=== PATIENT | female | born 1945 | race Caucasian/White ===

== ENCOUNTER 2021-09-17 12:06 | Inpatient (IN) ==
[2021-09-17] MEDS ORDERED: SODIUM CHLORIDE 0.9% 1,000 ML IV STA (13:34)
[2021-09-17 14:12] LABS: Basophils % 0.3 % (0.0-0.8); Eosinophils % 0.2 % (0.00-10.9); Hematocrit 44.7 VOL% (35.7-47.0); Hemoglobin 14.9 GM/DL (12.0-16.0); Immature Granulocytes % 0.4 %; Immature Granulocytes Absolute 0.04 #; Lymphocytes # 2.3 10*3/uL (1.4-4.0); Lymphocytes % 26.1 % (21.3-54.2); Mean Corpuscular HGB Conc 33.3 GM/DL (32-36); Mean Corpuscular Volume 93.7 FL (87-102); Monocytes % 10.8 % (1.7-12.7); Neutrophils % 62.2 % (38.7-73.9); Platelet Count 150 T/CUMM (130-400); Red Blood Count 4.77 MC/CUMM (3.8-5.5); Red Cell Distribution Width 13.9 % (9.3-17.3); White Blood Count 8.9 T/CUMM (4-12)
[2021-09-17] MEDS ORDERED: levETIRAcetam 500 MG/5 ML VIAL IV ONE (14:14)
[2021-09-17 14:24] LABS: PT Patient Result 11.1 SECS (10.5-12.0)
[2021-09-17 15:18] LABS: Albumin 3.7 G/DL (3.4-5.0); Bilirubin,Total 2.2 MG/DL (0.20-1.00); Calcium 9.6 MG/DL (8.5-10.1); Potassium 4.2 MMOL/L (3.5-5.1); Total Protein 6.8 G/DL (6.4-8.2)
[2021-09-17] MEDS ORDERED: hydrALAZINE 20 MG/1 ML VIAL IV STA (15:26)
[2021-09-17] MEDS ORDERED: ONDANSETRON 4 MG/2 ML VIAL IV STA (16:22)
[2021-09-17] MEDS ORDERED: amLODIPine 5 MG TABLET PO STA (16:25)
[2021-09-17 16:37] LABS: Bilirubin,Urine Negative (Negative); Blood, Urine Small mg/dL (Negative); Glucose,Urine (UA) Negative (Negative); Hyaline Casts,Urine 1 /LPF (0-3); Ketones,Urine Negative (Negative); Mucus,Urine Occasional /LPF (Occasional); Nitrite,Urine Negative (Negative); Protein,Urine 100 MG/DL; RBC,Urine <1 /HPF (0-4); Squamous Epithelial Cell,Urine Occasional /HPF (0-10); Urine Appearance CLEAR (Clear); Urine Color Yellow (Yellow); Urine Specific Gravity 1.009 (1.001-1.035); Urine Urobilinogen < 2.0 EU/DL (0.2-1.0)
[2021-09-17] MEDS ORDERED: GLUCAGON 1 MG VIAL IM PRN (16:39)
[2021-09-17] MEDS ORDERED: DEXTROSE 50% 25 GM/50 ML SYRINGE IV PRN (16:39)
[2021-09-17] MEDS ORDERED: BISACODYL 5 MG TABLET PO PRN (16:40)
[2021-09-17] MEDS ORDERED: ACETAMINOPHEN 325 MG TABLET PO PRN (16:40)
[2021-09-17] MEDS ORDERED: ONDANSETRON 4 MG/2 ML VIAL IV PRN (16:40)
[2021-09-17] MEDS ORDERED: LORazepam 2 MG/1 ML VIAL IV PRN (16:41)
[2021-09-17] MEDS: LOSARTAN 25 MG TABLET PO SCH (18:00)
[2021-09-17] MEDS: SODIUM CHLORIDE 0.9% 1,000 ML IV SCH (18:00)
[2021-09-17] MEDS: ENOXAPARIN 40 MG/0.4 ML SYRINGE SUBCUT SCH (18:00)
[2021-09-17 18:22] LABS: Barbiturates Screen,Urine Negative (Negative); Benzodiazepines Screen,Urine Negative (Negative); Cannabinoid Screen,Urine Negative (Negative); Opiate Screen,Urine Negative (Negative); Phencyclidine Screen,Urine Negative (Negative)
[2021-09-17] MEDS ORDERED: METOPROLOL TARTRATE 50 MG TABLET PO SCH (21:00)
[2021-09-17] MEDS: INSULIN LISPRO 100 UNIT/ML SUBCUT SCH (21:40)
[2021-09-18 02:39] LABS: Calcium 8.6 MG/DL (8.5-10.1); Osmolality,Calculated 287.5 MOS/KG (273-304); Potassium 3.6 MMOL/L (3.5-5.1)
[2021-09-18] MEDS: SODIUM CHLORIDE 0.9% 1,000 ML IV SCH ×4 (05:28→23:01)
[2021-09-18 06:31] LABS: Basophils # 0.1 10*3/uL (0.0-0.2); Basophils % 0.7 % (0.0-0.8); Eosinophils % 0.1 % (0.00-10.9); Hematocrit 39.6 VOL% (35.7-47.0); Immature Granulocytes % 0.3 %; Immature Granulocytes Absolute 0.02 #; Lymphocytes # 2.3 10*3/uL (1.4-4.0); Lymphocytes % 30.5 % (21.3-54.2); Mean Corpuscular HGB Conc 32.8 GM/DL (32-36); Mean Corpuscular Volume 96.6 FL (87-102); Mean Platelet Volume 12.8 FL (9.6-12.0); Monocytes % 12.4 % (1.7-12.7); Platelet Count 131 T/CUMM (130-400); Red Cell Distribution Width 14.3 % (9.3-17.3); White Blood Count 7.6 T/CUMM (4-12)
[2021-09-18 07:02] LABS: Albumin 2.8 G/DL (3.4-5.0); Bilirubin,Total 1.6 MG/DL (0.20-1.00); Calcium 8.2 MG/DL (8.5-10.1); Osmolality,Calculated 290.1 MOS/KG (273-304); Potassium 3.8 MMOL/L (3.5-5.1); Risk Ratio 4.18; Thyroid Stimulating Hormone 0.325 uIU/ml (0.358-3.74); Total Protein 5.7 G/DL (6.4-8.2); VLDL Cholesterol 31.2 MG/DL
[2021-09-18] MEDS: INSULIN LISPRO 100 UNIT/ML SUBCUT SCH ×4 (07:37→21:33)
[2021-09-18] MEDS: LOSARTAN 25 MG TABLET PO SCH (08:13)
[2021-09-18 08:52] LABS: Free T4 (Free Thyroxine) 1.44 NG/DL (0.76-1.46)
[2021-09-18] MEDS ORDERED: LOSARTAN 25 MG TABLET PO ONE (12:15)
[2021-09-18] MEDS: hydrALAZINE 20 MG/1 ML VIAL IV PRN (15:26)
[2021-09-18] MEDS: ENOXAPARIN 40 MG/0.4 ML SYRINGE SUBCUT SCH (16:42)
[2021-09-19] MEDS: SODIUM CHLORIDE 0.9% 1,000 ML IV SCH ×3 (03:50→20:08)
[2021-09-19 06:24] LABS: Bilirubin,Total 1.4 MG/DL (0.20-1.00); Calcium 8.4 MG/DL (8.5-10.1); Osmolality,Calculated 289.3 MOS/KG (273-304); Potassium 3.9 MMOL/L (3.5-5.1); Total Protein 6.2 G/DL (6.4-8.2)
[2021-09-19] MEDS: INSULIN LISPRO 100 UNIT/ML SUBCUT SCH ×4 (08:16→20:09)
[2021-09-19] MEDS: LOSARTAN 50 MG TABLET PO SCH (08:16)
[2021-09-19] MEDS ORDERED: DIAZEPAM 5 MG TABLET PO ONE (14:37)
[2021-09-19] MEDS ORDERED: MAGNESIUM SULF RIDER 2 GM/50 ML PREMIX IV PRN (14:37)
[2021-09-19] MEDS ORDERED: POTASSIUM CHLORIDE RIDER 10 MEQ/100 ML PREMIX IV PRN (14:37)
[2021-09-19] MEDS ORDERED: diphenhydrAMINE CAP 25 MG CAPSULE PO ONE (14:37)
[2021-09-19] MEDS ORDERED: LIDOCAINE 1% 20 ML VIAL ONE (15:05)
[2021-09-19] MEDS ORDERED: fentaNYL 100 MCG/2 ML VIAL ONE (15:20)
[2021-09-19] MEDS ORDERED: MIDAZOLAM 2 MG/2 ML VIAL ONE (15:20)
[2021-09-19 17:12] LABS: Bacteria,Urine Many /HPF (Few); Bilirubin,Urine Negative (Negative); Blood, Urine Negative (Negative); Glucose,Urine (UA) 50 mg/dL (Negative); Ketones,Urine Negative (Negative); Mucus,Urine Occasional /LPF (Occasional); Nitrite,Urine Negative (Negative); Protein,Urine 100 MG/DL; RBC,Urine 2 /HPF (0-4); Squamous Epithelial Cell,Urine Occasional /HPF (0-10); Urine Appearance CLEAR (Clear); Urine Color Yellow (Yellow); Urine Specific Gravity 1.011 (1.001-1.035)
[2021-09-19] MEDS: ENOXAPARIN 40 MG/0.4 ML SYRINGE SUBCUT SCH (17:55)
[2021-09-20] MEDS: hydrALAZINE 20 MG/1 ML VIAL IV PRN (00:04)
[2021-09-20] MEDS: SODIUM CHLORIDE 0.9% 1,000 ML IV SCH ×4 (01:49→23:05)
[2021-09-20 06:02] LABS: Basophils % 0.5 % (0.0-0.8); Eosinophils # 0.2 10*3/uL (0.0-0.87); Eosinophils % 2.3 % (0.00-10.9); Hematocrit 39.9 VOL% (35.7-47.0); Immature Granulocytes % 0.2 %; Immature Granulocytes Absolute 0.02 #; Lymphocytes # 1.8 10*3/uL (1.4-4.0); Lymphocytes % 21.5 % (21.3-54.2); Mean Corpuscular HGB Conc 32.6 GM/DL (32-36); Mean Corpuscular Volume 97.1 FL (87-102); Mean Platelet Volume 12.5 FL (9.6-12.0); Monocytes % 11.4 % (1.7-12.7); Neutrophils % 64.1 % (38.7-73.9); Platelet Count 121 T/CUMM (130-400); Red Blood Count 4.11 MC/CUMM (3.8-5.5); Red Cell Distribution Width 14.4 % (9.3-17.3); White Blood Count 8.2 T/CUMM (4-12)
[2021-09-20 06:42] LABS: Albumin 2.7 G/DL (3.4-5.0); Bilirubin,Direct 0.37 MG/DL (0.0-0.20); Bilirubin,Indirect 1.4 MG/DL (0.0-1.0); Bilirubin,Total 1.8 MG/DL (0.20-1.00); Calcium 8.6 MG/DL (8.5-10.1); Osmolality,Calculated 284.4 MOS/KG (273-304); Potassium 3.8 MMOL/L (3.5-5.1); Total Protein 5.5 G/DL (6.4-8.2)
[2021-09-20] MEDS: SIMVASTATIN 40 MG TABLET PO SCH (09:53)
[2021-09-20] MEDS: LOSARTAN 50 MG TABLET PO SCH (09:53)
[2021-09-20] MEDS ORDERED: LOSARTAN 50 MG TABLET PO ONE (10:13)
[2021-09-20] MEDS: INSULIN LISPRO 100 UNIT/ML SUBCUT SCH ×4 (10:51→20:38)
[2021-09-20] MEDS ORDERED: SODIUM CHLORIDE 0.9% 500 ML IV ONE (17:40)
[2021-09-20] MEDS: ENOXAPARIN 40 MG/0.4 ML SYRINGE SUBCUT SCH (18:42)
[2021-09-20 20:27] LABS: Calcium 8.1 MG/DL (8.5-10.1); Osmolality,Calculated 288.5 MOS/KG (273-304)
[2021-09-21] MEDS: SODIUM CHLORIDE 0.9% 1,000 ML IV SCH ×2 (01:10→06:37)
[2021-09-21 06:00] LABS: Basophils % 0.2 % (0.0-0.8); Hematocrit 38.3 VOL% (35.7-47.0); Hemoglobin 12.6 GM/DL (12.0-16.0); Immature Granulocytes % 0.6 %; Immature Granulocytes Absolute 0.06 #; Lymphocytes # 1.6 10*3/uL (1.4-4.0); Lymphocytes % 14.7 % (21.3-54.2); Mean Corpuscular HGB Conc 32.9 GM/DL (32-36); Mean Platelet Volume 12.4 FL (9.6-12.0); Monocytes % 12.9 % (1.7-12.7); Neutrophils % 71.6 % (38.7-73.9); Platelet Count 108 T/CUMM (130-400); Red Blood Count 3.99 MC/CUMM (3.8-5.5); Red Cell Distribution Width 14.5 % (9.3-17.3); White Blood Count 10.8 T/CUMM (4-12)
[2021-09-21 06:24] LABS: Albumin 2.5 G/DL (3.4-5.0); Bilirubin,Direct 0.59 MG/DL (0.0-0.20); Bilirubin,Indirect 1.7 MG/DL (0.0-1.0); Bilirubin,Total 2.3 MG/DL (0.20-1.00); Calcium 8.3 MG/DL (8.5-10.1); Osmolality,Calculated 292.3 MOS/KG (273-304); Potassium 3.9 MMOL/L (3.5-5.1); Total Protein 5.6 G/DL (6.4-8.2)
[2021-09-21] MEDS ORDERED: diphenhydrAMINE CAP 25 MG CAPSULE PO ONE ×2 (07:27→14:00)
[2021-09-21] MEDS ORDERED: DIAZEPAM 5 MG TABLET PO ONE ×2 (07:27→14:00)
[2021-09-21] MEDS ORDERED: ceFAZolin 1,000 MG VIAL IRRIG ONE (07:27)
[2021-09-21] MEDS ORDERED: MAGNESIUM SULF RIDER 2 GM/50 ML PREMIX IV ONE (07:36)
[2021-09-21] MEDS: INSULIN LISPRO 100 UNIT/ML SUBCUT SCH ×4 (07:38→21:12)
[2021-09-21] MEDS: LOSARTAN 50 MG TABLET PO SCH (08:45)
[2021-09-21] MEDS: SIMVASTATIN 40 MG TABLET PO SCH (08:45)
[2021-09-21] MEDS ORDERED: ceFAZolin 1,000 MG VIAL ONE (13:59)
[2021-09-21] MEDS ORDERED: TISSUE ADHESIVE 1 EACH APPLICATOR TOP ONE (13:59)
[2021-09-21] MEDS ORDERED: MIDAZOLAM 2 MG/2 ML VIAL ONE ×2 (14:13→14:40)
[2021-09-21] MEDS ORDERED: methylPREDNISolone SOD SUC 125 MG/2 ML VIAL ONE (14:13)
[2021-09-21] MEDS ORDERED: fentaNYL 100 MCG/2 ML VIAL ONE (14:13)
[2021-09-21] MEDS ORDERED: hydrALAZINE 20 MG/1 ML VIAL ONE ×2 (14:38→15:11)
[2021-09-21] MEDS ORDERED: PROMETHAZINE 25 MG/1 ML VIAL ONE (14:52)
[2021-09-21] MEDS ORDERED: HYDROmorphone 2 MG/1 ML VIAL ONE (15:22)
[2021-09-21] MEDS ORDERED: KETOROLAC 30 MG/1 ML VIAL IV PRN (16:08)
[2021-09-21] MEDS: INSULIN GLARGINE 100 UNIT/ML SUBCUT SCH (21:11)
[2021-09-22] MEDS ORDERED: METOPROLOL TARTRATE 5 MG/5 ML VIAL IV ONE (00:32)
[2021-09-22] MEDS ORDERED: DIGOXIN 0.5 MG/2 ML AMP IV ONE ×2 (01:10→01:45)
[2021-09-22] MEDS: hydrALAZINE 20 MG/1 ML VIAL IV PRN (02:22)
[2021-09-22] MEDS: SODIUM CHLORIDE 0.9% 1,000 ML IV SCH ×2 (04:23→13:03)
[2021-09-22 05:40] LABS: Basophils % 0.1 % (0.0-0.8); Hematocrit 41.8 VOL% (35.7-47.0); Hemoglobin 13.6 GM/DL (12.0-16.0); Immature Granulocytes % 0.8 %; Immature Granulocytes Absolute 0.07 #; Lymphocytes # 0.6 10*3/uL (1.4-4.0); Lymphocytes % 7.3 % (21.3-54.2); Mean Corpuscular HGB Conc 32.5 GM/DL (32-36); Mean Platelet Volume 12.6 FL (9.6-12.0); Neutrophils % 87.8 % (38.7-73.9); Platelet Count 105 T/CUMM (130-400); Red Blood Count 4.31 MC/CUMM (3.8-5.5); Red Cell Distribution Width 14.4 % (9.3-17.3); White Blood Count 8.8 T/CUMM (4-12)
[2021-09-22 05:58] LABS: Osmolality,Calculated 298.3 MOS/KG (273-304); Potassium 4.2 MMOL/L (3.5-5.1)
[2021-09-22] MEDS: SIMVASTATIN 40 MG TABLET PO SCH (08:10)
[2021-09-22] MEDS: GABAPENTIN 400 MG CAPSULE PO SCH (08:10)
[2021-09-22] MEDS: LOSARTAN 50 MG TABLET PO SCH (08:10)
[2021-09-22] MEDS: COLCHICINE 0.6 MG CAPSULE PO SCH (08:10)
[2021-09-22] MEDS: INSULIN LISPRO 100 UNIT/ML SUBCUT SCH ×4 (08:11→20:32)
[2021-09-22] MEDS: METOPROLOL SUCCINATE XL 100 MG TABLET PO SCH (09:06)
[2021-09-22] MEDS: INSULIN GLARGINE 100 UNIT/ML SUBCUT SCH (21:56)
[2021-09-23] MEDS: SODIUM CHLORIDE 0.9% 1,000 ML IV SCH ×2 (00:29→18:05)
[2021-09-23 06:01] LABS: Basophils % 0.1 % (0.0-0.8); Eosinophils % 0.1 % (0.00-10.9); Hemoglobin 13.3 GM/DL (12.0-16.0); Immature Granulocytes % 0.5 %; Immature Granulocytes Absolute 0.07 #; Lymphocytes # 2.8 10*3/uL (1.4-4.0); Mean Corpuscular HGB Conc 32.4 GM/DL (32-36); Mean Corpuscular Volume 97.2 FL (87-102); Mean Platelet Volume 12.4 FL (9.6-12.0); Monocytes % 10.7 % (1.7-12.7); Neutrophils % 68.6 % (38.7-73.9); Platelet Count 144 T/CUMM (130-400); Red Blood Count 4.22 MC/CUMM (3.8-5.5); Red Cell Distribution Width 14.6 % (9.3-17.3); White Blood Count 13.8 T/CUMM (4-12)
[2021-09-23 06:16] LABS: Potassium 4.2 MMOL/L (3.5-5.1)
[2021-09-23] MEDS: COLCHICINE 0.6 MG CAPSULE PO SCH (08:54)
[2021-09-23] MEDS: GABAPENTIN 400 MG CAPSULE PO SCH (08:54)
[2021-09-23] MEDS: METOPROLOL SUCCINATE XL 100 MG TABLET PO SCH (08:54)
[2021-09-23] MEDS: SIMVASTATIN 40 MG TABLET PO SCH (08:54)
[2021-09-23] MEDS: LOSARTAN 50 MG TABLET PO SCH (08:54)
[2021-09-23] MEDS: INSULIN LISPRO 100 UNIT/ML SUBCUT SCH ×4 (08:55→20:46)
[2021-09-23] MEDS: INSULIN GLARGINE 100 UNIT/ML SUBCUT SCH (20:46)
[2021-09-24 06:19] LABS: Basophils % 0.4 % (0.0-0.8); Eosinophils # 0.2 10*3/uL (0.0-0.87); Eosinophils % 1.6 % (0.00-10.9); Immature Granulocytes % 0.4 %; Immature Granulocytes Absolute 0.04 #; Lymphocytes # 2.3 10*3/uL (1.4-4.0); Lymphocytes % 25.3 % (21.3-54.2); Mean Corpuscular HGB Conc 32.5 GM/DL (32-36); Mean Corpuscular Volume 96.9 FL (87-102); Mean Platelet Volume 12.4 FL (9.6-12.0); Monocytes % 14.4 % (1.7-12.7); Neutrophils % 57.9 % (38.7-73.9); Platelet Count 135 T/CUMM (130-400); Red Blood Count 4.13 MC/CUMM (3.8-5.5); Red Cell Distribution Width 14.4 % (9.3-17.3); White Blood Count 9.3 T/CUMM (4-12)
[2021-09-24 06:41] LABS: Calcium 8.9 MG/DL (8.5-10.1); Osmolality,Calculated 298.8 MOS/KG (273-304); Potassium 4.3 MMOL/L (3.5-5.1)
[2021-09-24] MEDS: INSULIN LISPRO 100 UNIT/ML SUBCUT SCH ×4 (09:18→21:32)
[2021-09-24] MEDS: GABAPENTIN 400 MG CAPSULE PO SCH (09:18)
[2021-09-24] MEDS: METOPROLOL SUCCINATE XL 100 MG TABLET PO SCH (09:18)
[2021-09-24] MEDS: COLCHICINE 0.6 MG CAPSULE PO SCH (09:19)
[2021-09-24] MEDS: LOSARTAN 50 MG TABLET PO SCH (09:19)
[2021-09-24] MEDS: SIMVASTATIN 40 MG TABLET PO SCH (09:19)
[2021-09-24] MEDS: SODIUM CHLORIDE 0.9% 1,000 ML IV SCH (15:53)
[2021-09-24] MEDS: INSULIN GLARGINE 100 UNIT/ML SUBCUT SCH (21:32)
[2021-09-25 06:10] LABS: Basophils # 0.1 10*3/uL (0.0-0.2); Basophils % 0.8 % (0.0-0.8); Eosinophils # 0.2 10*3/uL (0.0-0.87); Eosinophils % 3.1 % (0.00-10.9); Hematocrit 40.3 VOL% (35.7-47.0); Immature Granulocytes % 0.7 %; Immature Granulocytes Absolute 0.05 #; Lymphocytes % 25.5 % (21.3-54.2); Mean Corpuscular HGB Conc 32.3 GM/DL (32-36); Mean Corpuscular Volume 96.6 FL (87-102); Mean Platelet Volume 12.5 FL (9.6-12.0); Monocytes % 14.8 % (1.7-12.7); Neutrophils % 55.1 % (38.7-73.9); Platelet Count 119 T/CUMM (130-400); Red Blood Count 4.17 MC/CUMM (3.8-5.5); Red Cell Distribution Width 14.3 % (9.3-17.3); White Blood Count 7.7 T/CUMM (4-12)
[2021-09-25 06:28] LABS: Osmolality,Calculated 295.4 MOS/KG (273-304)
[2021-09-25 08:08] VITALS: BP 179/83
[2021-09-25] MEDS: INSULIN LISPRO 100 UNIT/ML SUBCUT SCH (08:38)
[2021-09-25] MEDS: METOPROLOL SUCCINATE XL 100 MG TABLET PO SCH (08:49)
[2021-09-25] MEDS: COLCHICINE 0.6 MG CAPSULE PO SCH (08:50)
[2021-09-25] MEDS: GABAPENTIN 400 MG CAPSULE PO SCH (08:50)
[2021-09-25] MEDS: LOSARTAN 50 MG TABLET PO SCH (08:50)
[2021-09-25] MEDS: SIMVASTATIN 40 MG TABLET PO SCH (08:50)
== END 2021-09-25 13:30 | disposition home health service (06) | DRG 243 ==
LOC: N.ED 12:06 → SUATTDRO 16:39 → N.EDINP 16:39 → N.3E 18:12 → N.CC 09-18 02:03 → N.TELEN 09-22 13:52
PROVIDERS: ADMIT Internal Medicine; ATTEND Internal Medicine

== ENCOUNTER 2022-07-29 15:29 | Inpatient (IN) ==
[2022-07-29] MEDS ORDERED: SODIUM CHLORIDE 0.9% 1,000 ML IV STA ×2 (16:22→19:59)
[2022-07-29] MEDS ORDERED: KETOROLAC 30 MG/1 ML VIAL IV STA (16:22)
[2022-07-29] MEDS ORDERED: ONDANSETRON 4 MG/2 ML VIAL IV STA (16:22)
[2022-07-29 16:42] LABS: Basophils % 0.1 % (0.0-0.8); Hematocrit 48.6 VOL% (35.7-47.0); Hemoglobin 16.2 GM/DL (12.0-16.0); Immature Granulocytes % 0.8 %; Immature Granulocytes Absolute 0.14 #; Lymphocytes # 1.4 10*3/uL (1.4-4.0); Mean Corpuscular HGB Conc 33.3 GM/DL (32-36); Mean Corpuscular Volume 91.5 FL (87-102); Mean Platelet Volume 12.7 FL (9.6-12.0); Monocytes # 1.3 10*3/uL (0.11-0.8); Monocytes % 7.4 % (1.7-12.7); Neutrophils % 83.7 % (38.7-73.9); Platelet Count 220 T/CUMM (130-400); Red Blood Count 5.31 MC/CUMM (3.8-5.5); Red Cell Distribution Width 13.9 % (9.3-17.3); White Blood Count 17.7 T/CUMM (4-12)
[2022-07-29 17:12] LABS: INR 1.1; PT Patient Result 11.9 SECS (10.1-12.1); Partial Thromboplastin Time 23.3 SECS (23.7-32.9)
[2022-07-29] MEDS ORDERED: hydrALAZINE 20 MG/1 ML VIAL ONE (17:12)
[2022-07-29] MEDS ORDERED: hydrALAZINE 20 MG/1 ML VIAL IV STA (17:15)
[2022-07-29 17:16] LABS: Alanine Aminotransferase 95 U/L (13-56); Albumin 2.5 G/DL (3.4-5.0); Alkaline Phosphatase 108 U/L (45-117); Aspartate Amino Transferase 133 U/L (0-37); Blood Urea Nitrogen 85 MG/DL (7-18); CKMB % 2.65 %; Calcium 9.1 MG/DL (8.5-10.1); Carbon Dioxide 21 MMOL/L (21-32); Chloride 102 MMOL/L (98-107); Glucose 394 MG/DL (74-106); Osmolality,Calculated 314.8 MOS/KG (273-304); Potassium 4.8 MMOL/L (3.5-5.1); Sodium 137 MMOL/L (136-145); Total Protein 6.5 G/DL (6.4-8.2)
[2022-07-29 17:18] LABS: Bacteria,Urine Many /HPF (Few); RBC,Urine 43 /HPF (0-4)
[2022-07-29 17:19] LABS: Bilirubin,Urine Small mg/dL (Negative); Glucose,Urine (UA) 250 mg/dL (Negative); Ketones,Urine Trace mg/dL (Negative); Nitrite,Urine Negative (Negative); Protein,Urine >=300 mg/dL (Negative); Urine Appearance Cloudy (Clear); Urine Color Yellow (Yellow); Urine Specific Gravity > 1.030 (1.001-1.035); Urine pH 5.5 (4.5-8.0)
[2022-07-29 17:20] LABS: Blood, Urine Large mg/dL (Negative)
[2022-07-29 18:26] LABS: Arterial Base Excess iSTAT -4 MMOL/L (-2.5-2.5); Arterial Bicarbonate iSTAT 22.1 MMOL/L (20-26); Arterial O2 Saturation iSTAT 96 % (95-100); Arterial PCO2 iSTAT 41 MM HG (35-48); Arterial PO2 iSTAT 86 MM HG (80-95); Arterial Total CO2 iSTAT 23 MMO/L (23-27); Arterial pH iSTAT 7.335 (7.35-7.45)
[2022-07-29] MEDS ORDERED: HYDROmorphone 1 MG/1 ML SYRINGE ONE (18:33)
[2022-07-29] MEDS ORDERED: cefTRIAXone 1,000 MG in SODIUM CHLORIDE 0.9% 100 ML IV STA (18:35)
[2022-07-29] MEDS ORDERED: AZITHROMYCIN INJ 500 MG in SODIUM CHLORIDE 0.9% 250 ML IV STA (18:35)
[2022-07-29] MEDS ORDERED: HYDROmorphone 1 MG/1 ML SYRINGE IV STA (18:40)
[2022-07-29] MEDS ORDERED: INSULIN REGULAR 100 UNIT/ML IV ONE (19:38)
[2022-07-29] MEDS ORDERED: INSULIN REGULAR DRIP 100 ML IV PRN (19:39)
[2022-07-29] MEDS ORDERED: ZALEPLON 5 MG CAPSULE PO PRN (19:43)
[2022-07-29] MEDS ORDERED: DEXTROSE 10% 250 ML BAG IV PRN ×2 (19:43→19:52)
[2022-07-29] MEDS ORDERED: ONDANSETRON 4 MG/2 ML VIAL IV PRN (19:43)
[2022-07-29] MEDS ORDERED: NICOTINE 21 MG/24 HR PATCH TRANSDERM PRN (19:43)
[2022-07-29] MEDS ORDERED: hydrALAZINE 20 MG/1 ML VIAL IV PRN (19:43)
[2022-07-29] MEDS ORDERED: DOCUSATE SODIUM 100 MG CAPSULE PO PRN (19:43)
[2022-07-29] MEDS ORDERED: GLUCAGON 1 MG VIAL IM PRN ×2 (19:43→19:52)
[2022-07-29] MEDS ORDERED: ACETAMINOPHEN 325 MG TABLET PO PRN (19:43)
[2022-07-29] MEDS ORDERED: diphenhydrAMINE CAP 25 MG CAPSULE PO PRN (19:43)
[2022-07-29] MEDS ORDERED: INSULIN REGULAR 100 UNIT/ML IV STA (20:59)
[2022-07-29 22:22] LABS: Calcium 7.6 MG/DL (8.5-10.1); Potassium 4.1 MMOL/L (3.5-5.1)
[2022-07-30] MEDS: ALBUTEROL/IPRATROPIUM 3 ML NEB RESP TX SCH ×4 (00:45→19:19)
[2022-07-30] MEDS: INSULIN LISPRO 100 UNIT/ML SUBCUT SCH ×5 (04:56→21:35)
[2022-07-30] MEDS: SODIUM CHLORIDE 0.9% 1,000 ML IV SCH ×2 (05:02→12:25)
[2022-07-30 05:10] LABS: Basophils % 0.2 % (0.0-0.8); Hematocrit 40.1 VOL% (35.7-47.0); Hemoglobin 13.2 GM/DL (12.0-16.0); Immature Granulocytes % 0.5 %; Immature Granulocytes Absolute 0.06 #; Lymphocytes % 15.5 % (21.3-54.2); Mean Corpuscular HGB Conc 32.9 GM/DL (32-36); Mean Corpuscular Volume 93.7 FL (87-102); Mean Platelet Volume 12.4 FL (9.6-12.0); Monocytes # 1.3 10*3/uL (0.11-0.8); Monocytes % 10.3 % (1.7-12.7); Neutrophils % 73.5 % (38.7-73.9); Platelet Count 174 T/CUMM (130-400); Red Blood Count 4.28 MC/CUMM (3.8-5.5); Red Cell Distribution Width 14.2 % (9.3-17.3)
[2022-07-30 05:29] LABS: Calcium 7.9 MG/DL (8.5-10.1); Osmolality,Calculated 322.8 MOS/KG (273-304); Potassium 4.3 MMOL/L (3.5-5.1)
[2022-07-30] MEDS: PANTOPRAZOLE 40 MG TABLET PO SCH (08:32)
[2022-07-30] MEDS: SODIUM CHLORIDE 23.4% CONC INJ 38.5 MEQ, SODIUM BICARB INJ 100 MEQ in STERILE WATER INJ... IV SCH (14:09)
[2022-07-31] MEDS: ALBUTEROL/IPRATROPIUM 3 ML NEB RESP TX SCH ×4 (00:24→19:19)
[2022-07-31 05:26] LABS: Calcium 7.4 MG/DL (8.5-10.1)
[2022-07-31] MEDS: SODIUM CHLORIDE 23.4% CONC INJ 38.5 MEQ, SODIUM BICARB INJ 100 MEQ in STERILE WATER INJ... IV SCH ×3 (06:31→23:39)
[2022-07-31] MEDS: PANTOPRAZOLE 40 MG TABLET PO SCH (09:16)
[2022-07-31] MEDS: INSULIN LISPRO 100 UNIT/ML SUBCUT SCH ×4 (09:18→21:32)
[2022-07-31] MEDS: cefTRIAXone 1,000 MG in SODIUM CHLORIDE 0.9% 100 ML IV SCH (13:41)
[2022-07-31] MEDS ORDERED: GABAPENTIN 400 MG CAPSULE PO ONE (20:35)
[2022-07-31] MEDS: HEPARIN 5,000 UNIT/1 ML VIAL SUBCUT SCH (21:30)
[2022-07-31] MEDS: METOPROLOL SUCCINATE XL 100 MG TABLET PO SCH (21:32)
[2022-07-31] MEDS: PRAZOSIN 1 MG CAPSULE PO SCH (21:33)
[2022-08-01] MEDS: ALBUTEROL/IPRATROPIUM 3 ML NEB RESP TX SCH ×4 (00:07→19:18)
[2022-08-01 05:01] LABS: Albumin 1.9 G/DL (3.4-5.0); Bilirubin,Total 0.6 MG/DL (0.20-1.00); Calcium 7.7 MG/DL (8.5-10.1); Potassium 3.6 MMOL/L (3.5-5.1)
[2022-08-01] MEDS: INSULIN LISPRO 100 UNIT/ML SUBCUT SCH ×4 (09:01→20:49)
[2022-08-01] MEDS: HEPARIN 5,000 UNIT/1 ML VIAL SUBCUT SCH ×2 (09:02→20:49)
[2022-08-01] MEDS: PRAZOSIN 1 MG CAPSULE PO SCH ×2 (09:03→20:50)
[2022-08-01] MEDS: PANTOPRAZOLE 40 MG TABLET PO SCH (09:03)
[2022-08-01] MEDS: SODIUM CHLORIDE 23.4% CONC INJ 38.5 MEQ, SODIUM BICARB INJ 100 MEQ in STERILE WATER INJ... IV SCH ×2 (11:08→16:22)
[2022-08-01] MEDS: cefTRIAXone 1,000 MG in SODIUM CHLORIDE 0.9% 100 ML IV SCH (12:36)
[2022-08-01] MEDS: METOPROLOL SUCCINATE XL 100 MG TABLET PO SCH (20:50)
[2022-08-01] MEDS: guaiFENesin/DM ER 600-30 MG TABLET PO PRN (22:54)
[2022-08-02] MEDS: ALBUTEROL/IPRATROPIUM 3 ML NEB RESP TX SCH ×4 (00:52→19:06)
[2022-08-02 04:50] LABS: Basophils # 0.1 10*3/uL (0.0-0.2); Basophils % 0.9 % (0.0-0.8); Eosinophils # 0.3 10*3/uL (0.0-0.87); Eosinophils % 5.9 % (0.00-10.9); Hematocrit 35.9 VOL% (35.7-47.0); Hemoglobin 11.8 GM/DL (12.0-16.0); Immature Granulocytes % 1.1 %; Immature Granulocytes Absolute 0.06 #; Lymphocytes # 1.1 10*3/uL (1.4-4.0); Lymphocytes % 19.6 % (21.3-54.2); Mean Corpuscular HGB Conc 32.9 GM/DL (32-36); Mean Corpuscular Volume 93.2 FL (87-102); Mean Platelet Volume 11.7 FL (9.6-12.0); Monocytes # 0.6 10*3/uL (0.11-0.8); Monocytes % 11.3 % (1.7-12.7); Neutrophils % 61.2 % (38.7-73.9); Platelet Count 137 T/CUMM (130-400); Red Blood Count 3.85 MC/CUMM (3.8-5.5); Red Cell Distribution Width 13.8 % (9.3-17.3); White Blood Count 5.6 T/CUMM (4-12)
[2022-08-02 05:12] LABS: Albumin 1.9 G/DL (3.4-5.0); Bilirubin,Total 0.5 MG/DL (0.20-1.00); Total Protein 4.9 G/DL (6.4-8.2)
[2022-08-02] MEDS: INSULIN LISPRO 100 UNIT/ML SUBCUT SCH ×4 (08:16→21:06)
[2022-08-02] MEDS: PRAZOSIN 1 MG CAPSULE PO SCH ×2 (09:50→21:06)
[2022-08-02] MEDS: PANTOPRAZOLE 40 MG TABLET PO SCH (09:50)
[2022-08-02] MEDS: HEPARIN 5,000 UNIT/1 ML VIAL SUBCUT SCH ×2 (09:51→21:07)
[2022-08-02] MEDS: SODIUM CHLORIDE 0.45% 1,000 ML IV SCH (12:03)
[2022-08-02] MEDS ORDERED: GABAPENTIN 400 MG CAPSULE PO ONE (12:37)
[2022-08-02] MEDS: cefTRIAXone 1,000 MG in SODIUM CHLORIDE 0.9% 100 ML IV SCH (13:48)
[2022-08-02] MEDS: guaiFENesin/DM ER 600-30 MG TABLET PO PRN (14:48)
[2022-08-02] MEDS: SODIUM CHLORIDE 23.4% CONC INJ 38.5 MEQ, SODIUM BICARB INJ 100 MEQ in STERILE WATER INJ... IV SCH (20:30)
[2022-08-02] MEDS: METOPROLOL SUCCINATE XL 100 MG TABLET PO SCH (21:06)
[2022-08-02] MEDS: GABAPENTIN 400 MG CAPSULE PO SCH (21:06)
[2022-08-03] MEDS: ALBUTEROL/IPRATROPIUM 3 ML NEB RESP TX SCH ×4 (00:16→19:06)
[2022-08-03] MEDS: SODIUM CHLORIDE 0.45% 1,000 ML IV SCH ×2 (04:26→08:21)
[2022-08-03 04:40] LABS: Osmolality,Calculated 301.3 MOS/KG (273-304)
[2022-08-03 04:42] LABS: Bilirubin,Total 0.4 MG/DL (0.20-1.00); Calcium 7.9 MG/DL (8.5-10.1); Osmolality,Calculated 300.4 MOS/KG (273-304); Total Protein 4.8 G/DL (6.4-8.2)
[2022-08-03] MEDS: INSULIN LISPRO 100 UNIT/ML SUBCUT SCH ×4 (08:21→22:56)
[2022-08-03] MEDS: HEPARIN 5,000 UNIT/1 ML VIAL SUBCUT SCH ×2 (08:21→22:55)
[2022-08-03] MEDS: PANTOPRAZOLE 40 MG TABLET PO SCH (08:22)
[2022-08-03] MEDS: GABAPENTIN 400 MG CAPSULE PO SCH ×2 (08:22→22:55)
[2022-08-03] MEDS: PRAZOSIN 1 MG CAPSULE PO SCH ×2 (08:22→22:54)
[2022-08-03] MEDS: cefTRIAXone 1,000 MG in SODIUM CHLORIDE 0.9% 100 ML IV SCH (12:41)
[2022-08-03] MEDS: METOPROLOL SUCCINATE XL 100 MG TABLET PO SCH (21:00)
[2022-08-03] MEDS: MENTHOL/ZINC OXIDE OINT 71 GM JAR TOP SCH (22:55)
[2022-08-04] MEDS: ALBUTEROL/IPRATROPIUM 3 ML NEB RESP TX SCH ×4 (01:16→19:26)
[2022-08-04] MEDS: SODIUM CHLORIDE 0.45% 1,000 ML IV SCH (04:51)
[2022-08-04 05:13] LABS: Basophils % 0.5 % (0.0-0.8); Eosinophils # 0.3 10*3/uL (0.0-0.87); Eosinophils % 5.6 % (0.00-10.9); Hematocrit 34.7 VOL% (35.7-47.0); Hemoglobin 11.4 GM/DL (12.0-16.0); Immature Granulocytes Absolute 0.06 #; Lymphocytes # 1.1 10*3/uL (1.4-4.0); Lymphocytes % 19.6 % (21.3-54.2); Mean Corpuscular HGB Conc 32.9 GM/DL (32-36); Mean Corpuscular Volume 94.3 FL (87-102); Mean Platelet Volume 11.5 FL (9.6-12.0); Monocytes # 0.8 10*3/uL (0.11-0.8); Monocytes % 13.8 % (1.7-12.7); Neutrophils % 59.5 % (38.7-73.9); Platelet Count 143 T/CUMM (130-400); Red Blood Count 3.68 MC/CUMM (3.8-5.5); Red Cell Distribution Width 13.9 % (9.3-17.3); White Blood Count 5.7 T/CUMM (4-12)
[2022-08-04 05:25] LABS: Calcium 8.3 MG/DL (8.5-10.1); Osmolality,Calculated 293.8 MOS/KG (273-304); Potassium 3.9 MMOL/L (3.5-5.1)
[2022-08-04] MEDS: INSULIN LISPRO 100 UNIT/ML SUBCUT SCH ×4 (08:05→22:34)
[2022-08-04] MEDS: PANTOPRAZOLE 40 MG TABLET PO SCH (09:19)
[2022-08-04] MEDS: GABAPENTIN 400 MG CAPSULE PO SCH ×2 (09:19→22:33)
[2022-08-04] MEDS: PRAZOSIN 1 MG CAPSULE PO SCH ×2 (09:19→22:33)
[2022-08-04] MEDS: HEPARIN 5,000 UNIT/1 ML VIAL SUBCUT SCH ×2 (09:20→22:34)
[2022-08-04] MEDS: MENTHOL/ZINC OXIDE OINT 71 GM JAR TOP SCH ×2 (09:23→22:34)
[2022-08-04] MEDS ORDERED: TUBERCULIN SKIN TEST 0.1 ML SYRINGE INTRADERM ONE (10:03)
[2022-08-04] MEDS: cefTRIAXone 1,000 MG in SODIUM CHLORIDE 0.9% 100 ML IV SCH (13:39)
[2022-08-04] MEDS ORDERED: INSULIN GLARGINE 100 UNIT/ML SUBCUT SCH (21:00)
[2022-08-04] MEDS: METOPROLOL SUCCINATE XL 100 MG TABLET PO SCH (22:33)
[2022-08-04] MEDS: SIMVASTATIN 40 MG TABLET PO SCH (22:34)
[2022-08-05] MEDS: ALBUTEROL/IPRATROPIUM 3 ML NEB RESP TX SCH ×5 (00:21→23:30)
[2022-08-05 05:38] LABS: Basophils % 0.5 % (0.0-0.8); Eosinophils # 0.4 10*3/uL (0.0-0.87); Eosinophils % 6.1 % (0.00-10.9); Hematocrit 35.1 VOL% (35.7-47.0); Hemoglobin 11.2 GM/DL (12.0-16.0); Immature Granulocytes % 1.4 %; Immature Granulocytes Absolute 0.08 #; Lymphocytes # 1.2 10*3/uL (1.4-4.0); Lymphocytes % 20.3 % (21.3-54.2); Mean Corpuscular HGB Conc 31.9 GM/DL (32-36); Mean Corpuscular Volume 95.1 FL (87-102); Mean Platelet Volume 11.6 FL (9.6-12.0); Monocytes # 0.9 10*3/uL (0.11-0.8); Monocytes % 15.3 % (1.7-12.7); Neutrophils % 56.4 % (38.7-73.9); Platelet Count 141 T/CUMM (130-400); Red Blood Count 3.69 MC/CUMM (3.8-5.5); Red Cell Distribution Width 14.1 % (9.3-17.3); White Blood Count 5.8 T/CUMM (4-12)
[2022-08-05 05:56] LABS: Calcium 8.6 MG/DL (8.5-10.1); Osmolality,Calculated 299.3 MOS/KG (273-304); Potassium 4.1 MMOL/L (3.5-5.1)
[2022-08-05] MEDS: PANTOPRAZOLE 40 MG TABLET PO SCH (08:49)
[2022-08-05] MEDS: PRAZOSIN 1 MG CAPSULE PO SCH ×2 (08:49→22:18)
[2022-08-05] MEDS: GABAPENTIN 400 MG CAPSULE PO SCH ×2 (08:49→22:19)
[2022-08-05] MEDS: INSULIN LISPRO 100 UNIT/ML SUBCUT SCH ×4 (08:50→22:20)
[2022-08-05] MEDS: HEPARIN 5,000 UNIT/1 ML VIAL SUBCUT SCH ×2 (08:50→22:18)
[2022-08-05] MEDS: MENTHOL/ZINC OXIDE OINT 71 GM JAR TOP SCH ×2 (08:53→22:21)
[2022-08-05] MEDS: cefTRIAXone 1,000 MG in SODIUM CHLORIDE 0.9% 100 ML IV SCH (12:21)
[2022-08-05] MEDS: SIMVASTATIN 40 MG TABLET PO SCH (22:18)
[2022-08-05] MEDS: METOPROLOL SUCCINATE XL 100 MG TABLET PO SCH (22:19)
[2022-08-05] MEDS: INSULIN GLARGINE 100 UNIT/ML SUBCUT SCH (22:20)
[2022-08-06 05:28] LABS: Basophils % 0.5 % (0.0-0.8); Eosinophils # 0.3 10*3/uL (0.0-0.87); Eosinophils % 5.7 % (0.00-10.9); Hematocrit 34.8 VOL% (35.7-47.0); Hemoglobin 11.2 GM/DL (12.0-16.0); Immature Granulocytes % 0.9 %; Immature Granulocytes Absolute 0.05 #; Lymphocytes # 1.3 10*3/uL (1.4-4.0); Lymphocytes % 22.8 % (21.3-54.2); Mean Corpuscular HGB Conc 32.2 GM/DL (32-36); Mean Corpuscular Volume 95.1 FL (87-102); Monocytes # 0.8 10*3/uL (0.11-0.8); Monocytes % 14.8 % (1.7-12.7); Neutrophils % 55.3 % (38.7-73.9); Platelet Count 137 T/CUMM (130-400); Red Blood Count 3.66 MC/CUMM (3.8-5.5); Red Cell Distribution Width 14.1 % (9.3-17.3); White Blood Count 5.6 T/CUMM (4-12)
[2022-08-06 05:44] LABS: Calcium 8.3 MG/DL (8.5-10.1)
[2022-08-06] MEDS: ALBUTEROL/IPRATROPIUM 3 ML NEB RESP TX SCH ×3 (07:30→19:34)
[2022-08-06] MEDS: INSULIN LISPRO 100 UNIT/ML SUBCUT SCH ×4 (08:37→21:53)
[2022-08-06] MEDS: HEPARIN 5,000 UNIT/1 ML VIAL SUBCUT SCH ×2 (08:43→22:21)
[2022-08-06] MEDS: PANTOPRAZOLE 40 MG TABLET PO SCH (08:43)
[2022-08-06] MEDS: GABAPENTIN 400 MG CAPSULE PO SCH ×2 (08:43→22:21)
[2022-08-06] MEDS: MENTHOL/ZINC OXIDE OINT 71 GM JAR TOP SCH ×2 (08:43→22:22)
[2022-08-06] MEDS: PRAZOSIN 1 MG CAPSULE PO SCH ×2 (08:43→22:20)
[2022-08-06] MEDS: cefTRIAXone 1,000 MG in SODIUM CHLORIDE 0.9% 100 ML IV SCH (12:33)
[2022-08-06] MEDS: METOPROLOL SUCCINATE XL 100 MG TABLET PO SCH (22:20)
[2022-08-06] MEDS: SIMVASTATIN 40 MG TABLET PO SCH (22:20)
[2022-08-06] MEDS: INSULIN GLARGINE 100 UNIT/ML SUBCUT SCH (22:21)
[2022-08-07] MEDS: ALBUTEROL/IPRATROPIUM 3 ML NEB RESP TX SCH ×4 (00:43→19:20)
[2022-08-07] MEDS: PRAZOSIN 1 MG CAPSULE PO SCH ×2 (09:21→22:23)
[2022-08-07] MEDS: GABAPENTIN 400 MG CAPSULE PO SCH ×2 (09:21→22:21)
[2022-08-07] MEDS: PANTOPRAZOLE 40 MG TABLET PO SCH (09:22)
[2022-08-07] MEDS: INSULIN LISPRO 100 UNIT/ML SUBCUT SCH ×4 (09:23→22:21)
[2022-08-07] MEDS: HEPARIN 5,000 UNIT/1 ML VIAL SUBCUT SCH ×2 (09:25→22:20)
[2022-08-07] MEDS: MENTHOL/ZINC OXIDE OINT 71 GM JAR TOP SCH ×2 (09:29→22:22)
[2022-08-07] MEDS: guaiFENesin/DM ER 600-30 MG TABLET PO PRN (13:01)
[2022-08-07] MEDS: cefTRIAXone 1,000 MG in SODIUM CHLORIDE 0.9% 100 ML IV SCH (13:02)
[2022-08-07] MEDS: METOPROLOL SUCCINATE XL 100 MG TABLET PO SCH (22:21)
[2022-08-07] MEDS: INSULIN GLARGINE 100 UNIT/ML SUBCUT SCH (22:21)
[2022-08-07] MEDS: SIMVASTATIN 40 MG TABLET PO SCH (22:23)
[2022-08-08] MEDS: ALBUTEROL/IPRATROPIUM 3 ML NEB RESP TX SCH ×2 (00:10→07:00)
[2022-08-08] MEDS: PANTOPRAZOLE 40 MG TABLET PO SCH (09:34)
[2022-08-08] MEDS: PRAZOSIN 1 MG CAPSULE PO SCH (09:35)
[2022-08-08] MEDS: GABAPENTIN 400 MG CAPSULE PO SCH (09:35)
[2022-08-08] MEDS: HEPARIN 5,000 UNIT/1 ML VIAL SUBCUT SCH (09:40)
[2022-08-08] MEDS: MENTHOL/ZINC OXIDE OINT 71 GM JAR TOP SCH (09:41)
[2022-08-08] MEDS: INSULIN LISPRO 100 UNIT/ML SUBCUT SCH (10:10)
[2022-08-08 12:25] VITALS: BP 134/62
== END 2022-08-08 12:56 | disposition swing bed (61) | DRG 682 ==
LOC: EDBD → EDUNIT# → N.ED 15:29 → N.TELES 19:43 → SUATTDRO 19:43 → N.TELES 07-30 00:15
PROVIDERS: ADMIT Internal Medicine Geriatric Medicine; ATTEND Internal Medicine